=== PATIENT | female | born 1945 | race Caucasian/White ===

== ENCOUNTER → 2017-12-08 | Outpatient (CLI) | payer MEDICARE ==
--- NOTE | 2017-12-08 11:45 | BD ---
EXAMINATION TYPE: Axial Bone Density DATE OF EXAM: 12/08/2017 CLINICAL HISTORY: Height: 62 Weight: 168 FRAX RISK QUESTIONS: Alcohol (3 or more units per day): no Family History (Parent hip fracture): not hip but mother broke femur Glucocorticoids (More than 3mos): yes, as needed (Ex: prednisone, prednisolone, methylprednisolone, dexamethasone, and hydrocortisone). History of Fracture in Adulthood: no Secondary Osteoporosis: 1. Type 1 Diabetes: no 2. Hyperthyroidism: no 3. Menopause before 45: yes, 44 4. Malnutrition: no 5. Chronic liver disease: no Rheumatoid Arthritis: no Current Tobacco Use: no RISK FACTORS HISTORY OF: Back surgery: yes, 1994 Family History of Osteoporosis: unsure Active: yes Diet low in dairy products/other sources of calcium: no Postmenopausal woman: yes Take estrogen and/or progesterone medications: no Lost more than 2 inches in height since high school: possibly...states may have been 64 inches tall a t one time Frequent falls: no Poor Health: no Hyperparathyroidism: no Adrenal Insufficiency: no MEDICATIONS: Prednisone or other steroids: yes, on & off now uses BREO How Long: about 10 years or so Thyroid Medications: yes Which medication: Levothyroxine How Long: since in 's...over 50 years Osteoporosis Medications: no Additional Medications: vitamins Additional History: COPD, left side of thyroid removed, lumbar back surgery for narrowing EXAM MEASUREMENTS: Bone mineral densitometry was performed using the [employer] System. Bone mineral density as measured about the Lumbar spine is: ----- L1-L4(G/cm2): 1.039 T Score Values are as follows: ----- L2: -1.3 ----- L3: -0.8 ----- L4: -1.6 ----- L1-L4: -1.2 Bone mineral density not previously done at this facility; done elsewhere Bone mineral density about the R hip (g/cm2): 0.712 Bone mineral density about the L hip (g/cm2): 0.747 T Score values are as follows: -----R Neck: -2.3 -----L Neck: -2.1 -----R Total: -1.3 -----L Total: -1.4 Bone mineral not previously done at this facility; done elsewhere IMPRESSION: 1. Osteopenia about the lumbar spine. 2. Osteopenia about the bilateral femora. NOTE: T-SCORE=SD OF THE YOUNG ADULT MEAN.
--- NOTE | 2017-12-10 10:38 | MM ---
Reason for exam: screening (asymptomatic). Last mammogram was performed 1 year and 10 months ago. History: Patient is postmenopausal and has history of other cancer at age 41. Benign excisional biopsy of the left breast. Physical Findings: A clinical breast exam by your physician is recommended on an annual basis and results should be correlated with mammographic findings. MG 3D Screening Mammo W/Cad Bilateral CC and MLO view(s) were taken. Prior study comparison: January 30, 2016, mammogram, performed at [facility]. The breast tissue is heterogeneously dense. This may lower the sensitivity of mammography. Previous mammotome biopsy in the left breast. There is chronic nodularity bilaterally. Possible architectural distortion 10 o'clock left breast. ASSESSMENT: Incomplete: need additional imaging evaluation, BI-RAD 0 RECOMMENDATION: Special view mammogram of the left breast. If lesion persists on supplemental views, image directed ultrasound is recommended. [facility] will attempt to contact patient to return for supplemental views and ultrasound if indicated.
== END | disposition home or self-care (01) ==
LOC: RADMAMWWP 08:27
PROVIDERS: ATTEND Family Medicine
DX: Z12.31 Encounter for screening mammogram for malignant neoplasm of breast (principal); M85.851 Other specified disorders of bone density and structure, right thigh; M85.852 Other specified disorders of bone density and structure, left thigh; M85.88 Other specified disorders of bone density and structure, other site; Z78.0 Asymptomatic menopausal state
CPT/HCPCS: 77063; 77067; 77080

== ENCOUNTER → 2017-12-13 | Outpatient (CLI) | payer MEDICARE ==
--- NOTE | 2017-12-13 12:19 | CT ---
EXAMINATION TYPE: CT sinus wo con DATE OF EXAM: 12/13/2017 COMPARISON: None HISTORY: Patient complains of sinus infection, bad smell, and tooth abscess. CT DLP: 622.3 mGycm CONTRAST: None The paranasal sinuses are examined in the axial plane at 2 mm thick sections. Reconstructed images i n the coronal plane were obtained. On the diabetes specialist image there is extensive dental work evident. The images were obtained above this level. No suspicious obvious abscess is identified within the [id number] within the maxilla. The maxillary sinuses are clear. The ethmoid air cells are clear. The sphenoid sinuses are clear. The frontal sinuses are clear. The septum is evaluated. There is septal deviation to the left. A right monserrat bullosa is present. The ostiomeatal units are patent. Hyperostosis frontalis internus is present, normal variant. IMPRESSIONS: 1. No obvious maxillary bone or paranasal sinus infections evident.
== END | disposition home or self-care (01) ==
LOC: RADCTMAIN 11:22
PROVIDERS: ATTEND Internal Medicine
DX: J32.9 Chronic sinusitis, unspecified (principal)
CPT/HCPCS: 70486

== ENCOUNTER → 2017-12-16 | Outpatient (CLI) | payer MEDICARE ==
--- NOTE | 2017-12-16 15:10 | MM ---
Reason for exam: additional evaluation requested from abnormal screening. Last mammogram was performed less than 1 month ago. History: Patient is postmenopausal and has history of other cancer at age 41. Benign excisional biopsy of the left breast. Physical Findings: Nurse did not find any significant physical abnormalities on exam. MG 3D Work Up W/Cad LT Spot compression CC, spot compression MLO, and ML view(s) were taken of the left breast. Prior study comparison: December 08, 2017, bilateral MG 3d screening mammo w/cad. January 30, 2016, mammogram, performed at [facility]. Persistent distortion upper inner quadrant left breast, ultrasound recommended. These results were verbally communicated with the patient and result sheet given to the patient on 12/16/17. ASSESSMENT: Incomplete: need additional imaging evaluation, BI-RAD 0 RECOMMENDATION: Ultrasound of the left breast.
--- NOTE | 2017-12-16 15:12 | USB ---
Reason for exam: additional evaluation requested from abnormal screening. History: Patient is postmenopausal and has history of other cancer at age 41. Benign excisional biopsy of the left breast. US Breast Workup Limited LT Left limited breast ultrasound including focal area of concern, retroareolar and axilla demonstrates a 0.6 x 0.5 x 0.6cm cystic lesion at the nipple, nodes at axilla, a 0.2 x 0.2 x 0.2cm lesion too small to characterize at 11 o'clock and a 0.4 x 0.3 x 0.5cm lesion too small to characterize at 11 o'clock. These results were verbally communicated with the patient and result sheet given to the patient on 12/16/17. ASSESSMENT: Probably benign, BI-RAD 3 RECOMMENDATION: Follow-up diagnostic mammogram of the left breast in 6 months.
== END | disposition home or self-care (01) ==
LOC: RADMAMWWP 10:27
PROVIDERS: ATTEND Family Medicine
DX: R92.8 Other abnormal and inconclusive findings on diagnostic imaging of breast (principal)
CPT/HCPCS: 77065; 76642; G0279; 77061

== ENCOUNTER 2018-04-22 10:25 | Day surgery (SDC) | payer MEDICARE ==
[2018-04-21 08:27] VITALS: BMI 30.2
[~2018-04-22 10:25] MED LIST: LACTATED RINGERS 1,000 ML IV SCH
[2018-04-22 10:45] VITALS: RESP 16; TEMP 98
[2018-04-22] MEDS ORDERED: LIDOCAINE 1% 20 ML VIAL (10MG/ML) FOR IV START INTRADERMA ONE (10:54)
[2018-04-22] MEDS ORDERED: PROPOFOL 10 MG/ML 20 ML VIAL IV ONE (11:43)
[2018-04-22] MEDS ORDERED: LIDOCAINE 1% INJ 10MG/ML (20 ML MDV) ONE (11:43)
--- NOTE | 2018-04-22 12:01 | P.PCN ---
Date of Procedure: 04/22/18 Procedure(s) Performed: BRIEF HISTORY: Patient is a 72-year-old pleasant white female, scheduled for an elective colonoscopy as a part of screening for colorectal neoplasia. She was recently noted to have stool that was positive for cologuard and also has family history of colon cancer diagnosed in her father. PROCEDURE PERFORMED: Colonoscopy with snare polypectomy. PREOPERATIVE DIAGNOSIS: Positive stool for cologuard and family history of colon cancer. IV sedation per Anesthesia. PROCEDURE: After informed consent was obtained, the patient, was brought into the endoscopy unit. IV sedation was administered by Anesthesia under continuous monitoring. Digital rectal examination was normal. Initially the Olympus CF- 160 flexible video colonoscope was then inserted in the rectum, gradually advanced into the cecum without any difficulty. Careful examination was performed as the scope was gradually being withdrawn. Ileocecal valve and the appendiceal orifice were visualized and appeared normal. Prep was excellent. Mucosa of the cecum, ascending colon, transverse colon, descending colon, appeared normal. In the proximal sigmoid colon at 40 cm from the anal was there was a 2.5-3 cm pedunculated polyp removed by snare polypectomy. Rest of the sigmoid colon, and rectum appeared normal. Retroflexion was performed in the rectum and no lesions were seen. The patient tolerated the procedure well. IMPRESSION: 3 cm pedunculated proximal sigmoid colon polyp status post polypectomy Rest of the colon appeared normal RECOMMENDATIONS: Findings of this examination were discussed with the patient as her family. She was advised to follow with the biopsy results. If the biopsy shows adenoma, she can have a repeat colonoscopy in 3 years.
[2018-04-22 12:29] VITALS: BP 164/94; PULSE 66
== END 2018-04-22 12:38 | disposition home or self-care (01) ==
LOC: ORWHC2ENDO 10:25
PROVIDERS: ATTEND Internal Medicine Gastroenterology
DX: D12.5 Benign neoplasm of sigmoid colon (principal); R19.5 Other fecal abnormalities; Z80.0 Family history of malignant neoplasm of digestive organs; I10 Essential (primary) hypertension; G47.33 Obstructive sleep apnea (adult) (pediatric); E07.9 Disorder of thyroid, unspecified; Z99.89 Dependence on other enabling machines and devices; Z79.890 Hormone replacement therapy; Z79.899 Other long term (current) drug therapy
CPT/HCPCS: 88305; 45385; J2001; J2704

== ENCOUNTER → 2020-07-02 | Outpatient (CLI) | payer MEDICARE ==
--- NOTE | 2020-07-03 11:24 | MM ---
Reason for exam: screening (asymptomatic). Last mammogram was performed 2 years and 6 months ago. History: Patient is postmenopausal and has history of other cancer at age 41. Benign excisional biopsy of the left breast. Physical Findings: A clinical breast exam by your physician is recommended on an annual basis and results should be correlated with mammographic findings. MG Screening Mammo w CAD Bilateral CC and MLO view(s) were taken. Prior study comparison: December 08, 2017, bilateral MG 3d screening mammo w/cad. January 30, 2016, mammogram, performed at [facility]. No significant changes when compared with prior studies. ASSESSMENT: Benign, BI-RAD 2 RECOMMENDATION: Routine screening mammogram of both breasts in 1 year.
== END | disposition home or self-care (01) ==
LOC: RADMAMWWP 08:34
PROVIDERS: ATTEND Family Medicine
DX: Z12.31 Encounter for screening mammogram for malignant neoplasm of breast (principal)
CPT/HCPCS: 77067

== ENCOUNTER → 2021-09-11 | Outpatient (CLI) | payer MEDICARE ==
--- NOTE | 2021-09-12 13:58 | MM ---
Reason for exam: screening (asymptomatic). Last mammogram was performed 1 year and 2 months ago. History: Patient is postmenopausal and has history of other cancer at age 41. Benign stereotactic core biopsy of the left breast, 2018. Benign excisional biopsy of the left breast. Physical Findings: A clinical breast exam by your physician is recommended on an annual basis and results should be correlated with mammographic findings. MG 3D Screening Mammo W/Cad Bilateral CC and MLO view(s) were taken. Prior study comparison: July 02, 2020, bilateral MG screening mammo w CAD. December 16, 2017, left breast MG 3d work up w/cad LT. The breast tissue is heterogeneously dense. This may lower the sensitivity of mammography. No significant changes when compared with prior studies. ASSESSMENT: Benign, BI-RAD 2 RECOMMENDATION: Routine screening mammogram of both breasts in 1 year.
== END | disposition home or self-care (01) ==
LOC: RADMAMWWP 08:10
PROVIDERS: ATTEND Family Medicine
DX: Z12.31 Encounter for screening mammogram for malignant neoplasm of breast (principal); Z78.0 Asymptomatic menopausal state
CPT/HCPCS: 77063; 77067

== ENCOUNTER → 2021-11-05 | Outpatient (CLI) | payer MEDICARE ==
--- NOTE | 2021-11-05 20:46 | BD ---
EXAMINATION TYPE: Axial Bone Density DATE OF EXAM: 11/05/2021 COMPARISON: 12-08-2017 CLINICAL HISTORY: 76 years year old Female. ICD-10 CODE: M89.9 disorder of bone Height: 61.75 Weight: 165 FRAX RISK QUESTIONS: Glucocorticoids (More than 3mos): YES (Ex: prednisone, prednisolone, methylprednisolone, dexamethasone, and hydrocortisone). RISK FACTORS Surgery to Spine/Hip(right/left)/Wrist (right/left): STENOSIS CORRECTION When: Diet low in dairy products/other sources of calcium: YES Postmenopausal woman: 48 MEDICATIONS: Prednisone or other steroids: YES COPD Thyroid Medications: Which medication: SYNTHROID How Lon YEARS Additional Medications: SLEEP MEDS, BP MEDS Additional History: COPD EXAM MEASUREMENTS: Bone mineral densitometry was performed using the [employer] System. Bone mineral density as measured about the Lumbar spine is: ----- L1-L4(G/cm2): 1.065 T Score Values are as follows: ----- L1: -1.6 ----- L2: -0.6 ----- L3: -0.3 ----- L4: -1.4 ----- L1-L4: -1.0 Bone mineral density has: Increased 2.5% since study of: 12-08-2017 Bone mineral density about the R hip (g/cm2): 0.816 Bone mineral density about the L hip (g/cm2): 0.861 T Score values are as follows: -----R Neck: -2.4 -----L Neck: -2.2 -----R Total: -1.5 -----L Total: -1.2 Bone mineral density has: Increased 0.5% since study of: 12.08.2017 FRAX%s: The graph provided illustrates a 24.0% chance for a major osteoporotic fx and a 8.4% chance f or the hips probability for fx in 10 years time. IMPRESSION: Osteopenia (T Score between -2.5 and -1) remains present. There is slightly increased risk of fracture and the patient may be considered for treatment. Re-Screen 2-5 years. NOTE: T-SCORE=SD OF THE YOUNG ADULT MEAN.
== END | disposition home or self-care (01) ==
LOC: RADBDWWP 08:17
PROVIDERS: ATTEND Family Medicine
DX: M85.89 Other specified disorders of bone density and structure, multiple sites (principal); Z78.0 Asymptomatic menopausal state
CPT/HCPCS: 77080

== ENCOUNTER → 2022-09-14 | Outpatient (CLI) | payer MEDICARE ==
--- NOTE | 2022-09-15 19:31 | MM ---
Reason for Exam: Screening (asymptomatic). Last screening mammogram was performed 12 month(s) ago. Patient History: Menarche at age 11. First Full-Term at age 22. Postmenopausal. Other cancer, age 41. 2018, Benign Stereotactic Core Biopsy on the left side. Benign Excisional Biopsy on the left side. Risk Values: Kathy 5 year model risk: 2.6%. NCI Lifetime model risk: 5.3%. Prior Study Comparison: 12/16/2017 Left Diagnostic Mammogram, [facility]. 07/02/2020 Bilateral Screening Mammogram, [facility]. 09/11/2021 Bilateral Screening Mammogram, [facility]. Tissue Density: The breast tissue is heterogeneously dense. This may lower the sensitivity of mammography. Findings: Analyzed By CAD. New nodularity medial right breast. 2 areas of new nodularity central inner aspect of the left breast. Further evaluation is recommended. Chronic nodularity anterior left breast. Unchanged coarse microcalcifications lateral right breast. Overall Assessment: Incomplete: need additional imaging evaluation, BI-RAD 0 Management: Special View Mammogram of both breasts. Diagnostic Breast Ultrasound of both breasts. Additional views on both sides to include 3-D LM views. Subsequent bilateral breast ultrasounds based on location on the lateral views. Probably at the 2:00 position right breast and 9-10 o'clock position left breast. [facility] will attempt to contact patient to return for supplemental views and ultrasound if indicated. Electronically signed and approved by: Amelia Obrien M.D. Radiologist
== END | disposition home or self-care (01) ==
LOC: RADMAMWWP 16:42
PROVIDERS: ATTEND Family Medicine
DX: Z12.31 Encounter for screening mammogram for malignant neoplasm of breast (principal); Z78.0 Asymptomatic menopausal state
CPT/HCPCS: 77063; 77067

== ENCOUNTER → 2022-09-18 | Outpatient (CLI) | payer MEDICARE ==
--- NOTE | 2022-09-18 14:09 | MM ---
Reason for Exam: Additional evaluation requested from abnormal screening. Last screening mammogram was performed less than 1 month ago. Patient History: Menarche at age 11. First Full-Term at age 22. Postmenopausal. Other cancer, age 41. 2018, Benign Stereotactic Core Biopsy on the left side. Benign Excisional Biopsy on the left side. Risk Values: Kathy 5 year model risk: 2.6%. NCI Lifetime model risk: 5.3%. Prior Study Comparison: 01/30/2016 Screening Mammogram, [facility]. 12/08/2017 Bilateral Screening Mammogram, [facility]. 12/16/2017 Left Diagnostic Mammogram, [facility]. 12/16/2017 Left Diagnostic Ultrasound, [facility]. 07/02/2020 Bilateral Screening Mammogram, [facility]. 09/11/2021 Bilateral Screening Mammogram, [facility]. 09/14/2022 Bilateral MG 3D screening mammo w/cad, [facility]. Tissue Density: The breast tissue is heterogeneously dense. This may lower the sensitivity of mammography. Findings: Analyzed By CAD. Roughly 10 mm well-circumscribed mass new from prior mammograms anterior inner aspect approximately 3 cm distance from nipple persists on additional views. Roughly 17 mm circumscribed oval mass approximately 5 cm distance from nipple slightly upper aspect persists on additional views. Overall Assessment: Incomplete: need additional imaging evaluation, BI-RAD 0 Management: Diagnostic Breast Ultrasound of both breasts. Targeted bilateral breast ultrasound. Patient should continue monthly self-breast exams. A clinical breast exam by your physician is recommended on an annual basis. This exam should not preclude additional follow-up of suspicious palpable abnormalities. Note on Kathy scores and lifetime risk: 1. A Kathy score greater than 3% is considered moderate risk. If this is the case, consider specialist referral to assess eligibility for a risk reducing agent. 2. If overall lifetime risk for the development of breast cancer is 20% or higher, the patient may qualify for future screening with alternating mammogram and breast MRI. Electronically signed and approved by: Rebel Colby M.D.
--- NOTE | 2022-09-18 15:27 | USB ---
Reason for Exam: Additional evaluation requested from abnormal screening. Patient History: Menarche at age 11. First Full-Term at age 22. Postmenopausal. Other cancer, age 41. 2018, Benign Stereotactic Core Biopsy on the left side. Benign Excisional Biopsy on the left side. Risk Values: Kathy 5 year model risk: 2.6%. NCI Lifetime model risk: 5.3%. Technique: Method: Targeted. Prior Study Comparison: 07/02/2020 Bilateral Screening Mammogram, [facility]. 09/11/2021 Bilateral Screening Mammogram, [facility]. 09/14/2022 Bilateral MG 3D screening mammo w/cad, [facility]. Findings: The upper section of the breast of the left breast, the medial section of the breast of the right breast, the axilla of both breasts and the retroareolar of both breasts were scanned. Bilateral breast ultrasound shows a 10 x 6 x 9 mm simple appearing thin-walled cyst 2:00 position 3 cm distance from nipple in the right breast believed to be corresponding to new mammogram abnormality.. Benign-appearing subcentimeter right axillary lymph node is seen. There is 1.2 x 0.6 x 1.7 cm simple appearing thin-walled cyst 12:00 position 1 cm distance from nipple likely corresponding to new mammogram abnormality. Benign-appearing left axillary lymph node also noted. Overall Assessment: Benign, BI-RAD 2 Management: Screening Mammogram of both breasts in 1 year. Return to routine follow-up. Results were given to the patient verbally at the time of exam. Electronically signed and approved by: Rebel Colby M.D.
== END | disposition home or self-care (01) ==
LOC: RADMAMWWP 13:30
PROVIDERS: ATTEND Family Medicine
DX: R92.8 Other abnormal and inconclusive findings on diagnostic imaging of breast (principal); Z78.0 Asymptomatic menopausal state
CPT/HCPCS: 77066; 76642; G0279; 77062

== ENCOUNTER → 2024-09-28 | Outpatient (CLI) | payer MEDICARE ==
--- NOTE | 2024-09-28 10:37 | MM ---
Reason for Exam: Screening (asymptomatic). Last mammogram was performed 2 year(s) and 1 month(s) ago. Patient History: Menarche at age 11. First Full-Term at age 22. Postmenopausal. Other cancer, age 41. 2018, Benign Stereotactic Core Biopsy on the left side. Benign Excisional Biopsy on the left side. Risk Values: Kathy 5 year model risk: 2.5%. NCI Lifetime model risk: 4.5%. Prior Study Comparison: 12/08/2017 Bilateral Screening Mammogram, [facility]. 12/16/2017 Left Diagnostic Mammogram, [facility]. 07/02/2020 Bilateral Screening Mammogram, [facility]. 09/11/2021 Bilateral Screening Mammogram, [facility]. 09/14/2022 Bilateral MG 3D screening mammo w/cad, [facility]. 09/18/2022 Bilateral MG 3D work up w/cad [facility], [facility]. Tissue Density: There are scattered areas of fibroglandular density. Findings: Analyzed By CAD. Right breast: Simple appearing cysts right breast medial aspect on CC view has increased in size now measuring up to 23 mm. Mild fibroglandular tissue left breast CC view. Stable benign-appearing calcifications. Left breast: Stable architectural distortion left breast middle depth posterior nipple line on MLO view. There is no suspicious group of microcalcifications or new suspicious mass. Overall Assessment: Benign, BI-RAD 2 Management: Screening Mammogram of both breasts in [address] [facility] will attempt to contact patient to return for supplemental views and ultrasound if indicated. Patient should continue monthly self-breast exams. A clinical breast exam by your physician is recommended on an annual basis. This exam should not preclude additional follow-up of suspicious palpable abnormalities. Note on Kathy scores and lifetime risk: 1. A Kathy score greater than 3% is considered moderate risk. If this is the case, consider specialist referral to assess eligibility for a risk reducing agent. 2. If overall lifetime risk for the development of breast cancer is 20% or higher, the patient may qualify for future screening with alternating mammogram and breast MRI. [facility], , 09/28/2024 8:17 AM. Electronically signed and approved by: Silverio Jones DO
== END | disposition home or self-care (01) ==
LOC: RADMAMWWP 07:39
PROVIDERS: ATTEND Family Medicine
DX: Z12.31 Encounter for screening mammogram for malignant neoplasm of breast (principal); R92.323 Mammographic fibroglandular density, bilateral breasts; Z78.0 Asymptomatic menopausal state
CPT/HCPCS: 77063; 77067

== ENCOUNTER → 2024-09-28 | Outpatient (CLI) | payer MEDICARE ==
--- NOTE | 2024-09-28 11:43 | BD ---
EXAMINATION TYPE: Axial Bone Density DATE OF EXAM: 09/28/2024 CLINICAL HISTORY: 79 years old Female. ICD-10 CODE: M89.9 DISORDER OF BONE, UNSPECIFIED , Additional History: Height: 61.25" Weight: 171lbs FRAX RISK QUESTIONS: Alcohol (3 or more units per day): No Family History (Parent hip fracture): No Glucocorticoids (More than 3mos): No (Ex: prednisone, prednisolone, methylprednisolone, dexamethasone, and hydrocortisone). History of Fracture in Adulthood: No Secondary Osteoporosis: 1. Type 1 Diabetes: No 2. Hyperthyroidism: No 3. Menopause before 45: Yes 4. Malnutrition: No 5. Chronic liver disease: No Rheumatoid Arthritis: No Current Tobacco Use: No RISK FACTORS HISTORY OF: Hip Fracture (Right/Left): No Spine Fracture: No History of Wrist Fracture: No Surgery to Spine/Hip(right/left)/Wrist (right/left): Yes, lumbar 1995 MEDICATIONS: Thyroid Medications: Yes Which medication: Euthyrox 75mg How Long: Several years Osteoporosis Medications: No EXAM MEASUREMENTS: Bone mineral densitometry was performed using the [employer] System. Bone mineral density as measured about the Lumbar spine is: ----- L1-L4(G/cm2): 1.064 T Score Values are as follows: ----- L1: -1.0 ----- L2: -1.0 ----- L3: -0.2 ----- L4: -1.7 ----- L1-L4: -1.0 Z Score Values are as follows: ----- L1: 0.4 ----- L2: 0.4 ----- L3: 1.2 ----- L4: -0.3 ----- L1-L4: 0.4 Bone mineral density has: decrease -0.1% since study of: 11/05/2021 Bone mineral density about the R hip (g/cm2): 0.806 Bone mineral density about the L hip (g/cm2): 0.819 T Score values are as follows: -----R Neck: -2.5 -----L Neck: -2.1 -----R Total: -1.6 -----L Total: -1.5 Z Score values are as follows: -----R Neck: -0.7 -----L Neck: -0.3 -----R Total: 0.0 -----L Total: 0.1 Bone mineral density has: decreased -3.2% since study of: 11/05/2021 FRAX%s: The graph provided illustrates a 17.9% chance for a major osteoporotic fx and a 6.0% chance f or the hips probability for fx in 10 years time. IMPRESSION: Osteoporosis (T Score less than -2.5). There is increased fracture risk and therapy is usually indicated based on age. Re-Screen 1-2 years. NOTE: T-SCORE=SD OF THE YOUNG ADULT MEAN. [facility], , 09/28/2024 11:40 AM
== END | disposition home or self-care (01) ==
LOC: RADBDWWP 07:37
PROVIDERS: ATTEND Family Medicine
DX: M81.0 Age-related osteoporosis without current pathological fracture (principal); Z78.0 Asymptomatic menopausal state
CPT/HCPCS: 77080

== ENCOUNTER 2024-11-07 07:20 | Day surgery (SDC) | payer MEDICARE ==
[2024-11-06 10:48] VITALS: BMI 31.1
[~2024-11-07 07:20] MED LIST changes: -LACTATED RINGERS 1,000 ML IV SCH; +LIDOCAINE 1% (10MG/ML) FOR IV START INTRADERMA PRN
[2024-11-07 07:49] VITALS: TEMP 98
[2024-11-07] MEDS: LACTATED RINGERS 1,000 ML IV SCH (08:00)
[2024-11-07] MEDS: LACTATED RINGERS 1,000 ML IV ONE (08:00)
[2024-11-07] MEDS ORDERED: PROPOFOL 10 MG/ML 20 ML VIAL IV ONE (08:50)
--- NOTE | 2024-11-07 09:07 | P.PCN ---
Date of Procedure: 11/07/24 Procedure(s) Performed: BRIEF HISTORY: Patient is a 79-year-old pleasant white female scheduled for an elective colonoscopy as a part of screening for by history colon polyps and family history of colon cancer. Her father was diagnosed with colon cancer at age 65. 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 PROCEDURE PERFORMED: Colonoscopy with snare polypectomy. PREOPERATIVE DIAGNOSIS: Screening for history of colon polyps and family history of colon cancer. IV sedation per Anesthesia. PROCEDURE: After informed consent was obtained, the patient, was brought into the endoscopy unit. IV sedation was administered by Anesthesia under continuous monitoring. Digital rectal examination was normal. Initially the Olympus CF-160 flexible video colonoscope was then inserted in the rectum, gradually advanced into the cecum without any difficulty. Careful examination was performed as the scope was gradually being withdrawn. Ileocecal valve and the appendiceal orifice were visualized and appeared normal. Prep was excellent. Mucosa of the cecum, 3 mm polyp that was removed by cold snare polypectomy. In the ascending colon there was a 5 mm and 1 cm polyp removed by hot snare polypectomy. In the transverse colon there was a 3 mm and a 6 mm polyp removed by cold snare polypectomy. In the sigmoid colon there was a 5 mm polyp removed by cold snare polypectomy. Rest of the sigmoid colon, and rectum appeared normal. Retroflexion was performed in the rectum and no lesions were seen. The patient tolerated the procedure well. IMPRESSION: 3 mm cecal polyp status post cold snare polypectomy 5 mm and 1 cm ascending colon polyp status post hot snare polypectomy 3 mm and 6 mm transverse colon polyp status post polypectomy 5 mm sigmoid colon polyp status post polypectomy RECOMMENDATIONS: Findings of this examination were discussed with the patient as well as the family.. She was advised to follow-up with the biopsy results. If the biopsy reveals adenoma she can have repeat colonoscopy in 3 years.
[2024-11-07 09:16] VITALS: RESP 14
[2024-11-07 09:29] VITALS: BP 140/59; PULSE 64
== END 2024-11-07 10:01 | disposition home or self-care (01) ==
LOC: ORWHC2ENDO 07:20
PROVIDERS: ATTEND Internal Medicine Gastroenterology
DX: Z12.11 Encounter for screening for malignant neoplasm of colon (principal); D12.0 Benign neoplasm of cecum; D12.2 Benign neoplasm of ascending colon; D12.3 Benign neoplasm of transverse colon; D12.5 Benign neoplasm of sigmoid colon; Z86.0101 Personal history of adenomatous and serrated colon polyps; Z80.0 Family history of malignant neoplasm of digestive organs
CPT/HCPCS: 45385; J2704; 88305